=== PATIENT | male | born 1935 | race Caucasian/White ===

== ENCOUNTER 2017-01-20 09:29 | Emergency (ER) | payer MEDICARE, MEDICAID ==
[~2017-01-20] VITALS: Ht 170.2 cm; Wt 68.0 kg
[~2017-01-20 09:29] MED LIST: FLONASE NASAL50 MCG; KEFLEX500 M1 PO; MUCINEX600 MG PO
[2017-01-20] MEDS ORDERED: OCEAN NASAL0.65 % (10:32)
[2017-01-20] MEDS ORDERED: AFRIN 12 HOUR0.05 % (10:32)
[2017-01-20 10:45] VITALS: BP 149/78
[2017-01-21] MEDS ORDERED: AUGMENTIN500TAB PO (00:53)
== END 2017-01-20 10:45 | disposition home or self-care (01) ==
LOC: ED 09:29
DX: J95.830 Postprocedural hemorrhage of a respiratory system organ or structure following a respiratory system procedure (principal); Y83.8 Other surgical procedures as the cause of abnormal reaction of the patient, or of later complication, without mention of misadventure at the time of the procedure

== ENCOUNTER 2017-01-21 00:28 | Inpatient (IN) | payer MEDICARE, MEDICAID ==
[~2017-01-21] VITALS: Ht 170.2 cm; Wt 63.2 kg
[~2017-01-21 00:28] MED LIST changes: +AFRIN 12 HOUR0.05 %; +OCEAN NASAL0.65 %
[2017-01-21] MEDS ORDERED: AUGMENTIN500TAB PO (00:53)
[2017-01-21 01:56] LABS: HEMATOCRIT 41.4 % (39.0-50.0); HEMOGLOBIN 13.9 g/dl (14.0-18.0); IMMATURE GRANULOCYTES 0.4 % (0.0-1.0); MEAN CELL VOLUME 91.6 fL CALC (80.0-100.0); MEAN CORPUSCULAR HGB 30.8 pG CALC (26.0-32.0); MEAN CORPUSCULAR HGB CONC 33.6 g/L CALC (32.0-36.0); NEUT# 6.25 thou/uL (1.82-7.42); RED BLOOD COUNT 4.52 mill/uL (4.70-6.10); RED CELL DISTRI WIDTH 12.6 % (11.5-15.5)
[2017-01-21 02:03] LABS: ALBUMIN 3.5 g/dL (3.2-5.0); ALKALINE PHOSPHATASE 75 u/l (38-126); ANION GAP 15 (6-22 (CALC)); BILIRUBIN, TOTAL 0.5 mg/dL (0.0-1.4); BUN 18 mg/dL (8-23); BUN/CREATININE RATIO 17 (12-20 (CALC)); CALCIUM 9.4 mg/dL (8.4-10.2); CARBON DIOXIDE 23 mmol/l (22-30); CHLORIDE 106 mmol/l (95-108); CREATININE 1.1 mg/dL (0.7-1.3); GFR > 60 ML/MIN (>=60 (CALC)); GFR FOR AFR.AMER. > 60 ML/MIN (>=60 (CALC)); GLUCOSE 141 mg/dL (82-115); POTASSIUM 4.2 mmol/l (3.5-5.1); SGOT/AST 22 u/l (19-48); SGPT/ALT 38 u/l (11-66); SODIUM 140 mmol/l (137-146); TOTAL PROTEIN 6.5 g/dL (6.3-8.2)
[2017-01-21 02:15] LABS: ACT PARTIAL THROMBO TIME 26.2 SECONDS (20.0-32.5); INTERNATIONAL NORMALIZED RATIO 0.9 RATIO (0.7-1.3); PROTHROMBIN TIME 10.2 SECONDS (9.0-12.5)
[2017-01-21 07:59] VITALS: BP 122/67
[2017-01-21 10:15] LABS: HEMATOCRIT 33.3 % (39.0-50.0); MEAN CELL VOLUME 92.8 fL CALC (80.0-100.0); MEAN CORPUSCULAR HGB 30.6 pG CALC (26.0-32.0); RED BLOOD COUNT 3.59 mill/uL (4.70-6.10); RED CELL DISTRI WIDTH 12.7 % (11.5-15.5)
[2017-01-21 14:22] VITALS: BP 118/59
[2017-01-21 15:24] VITALS: BP 103/62
[2017-01-21 16:55] VITALS: BP 102/59; BP 109/61; BP 113/62
[2017-01-21 20:05] VITALS: BP 100/69
[2017-01-22 04:10] VITALS: BP 105/63
[2017-01-22 06:26] LABS: HEMATOCRIT 27.5 % (39.0-50.0); HEMOGLOBIN 9.2 g/dl (14.0-18.0); IMMATURE GRANULOCYTES 0.6 % (0.0-1.0); MEAN CORPUSCULAR HGB 30.8 pG CALC (26.0-32.0); MEAN CORPUSCULAR HGB CONC 33.5 g/L CALC (32.0-36.0); NEUT# 5.1 thou/uL (1.82-7.42); RED BLOOD COUNT 2.99 mill/uL (4.70-6.10); RED CELL DISTRI WIDTH 12.8 % (11.5-15.5)
[2017-01-22 09:51] VITALS: BP 112/67
== END 2017-01-22 10:20 | disposition home or self-care (01) | DRG 908 ==
LOC: ED 00:28 → ED-I 02:53 → ED 03:30 → MS2 03:31
PROVIDERS: Emergency Medicine; Nurse Practitioner Family; ADMIT Internal Medicine; ATTEND Internal Medicine
PROC: 0W3Q7ZZ Control Bleeding in Respiratory Tract, Via Natural or Artificial Opening (ICD-10-PCS; principal; 2017-01-21)
DX: J95.830 Postprocedural hemorrhage of a respiratory system organ or structure following a respiratory system procedure (principal); D62 Acute posthemorrhagic anemia; I95.89 Other hypotension; Y83.8 Other surgical procedures as the cause of abnormal reaction of the patient, or of later complication, without mention of misadventure at the time of the procedure

== ENCOUNTER 2017-07-02 06:50 | Day surgery (SDC) | payer MEDICARE, MEDICAID ==
[~2017-07-02] VITALS: Ht 170.2 cm; Wt 64.4 kg
[~2017-07-02 06:50] MED LIST changes: +AUGMENTIN500TAB PO; +MILLIPRED5 M1 PO; +MULTIVITAMI1 PO
[2017-07-02] MEDS ORDERED: NORCO1 TA1 PO (09:47)
[2017-07-02 10:19] VITALS: BP 127/68
== END 2017-07-02 10:45 | disposition home or self-care (01) ==
LOC: ORM 06:50
PROVIDERS: ATTEND Surgery
PROC: 0YU50JZ Supplement Right Inguinal Region with Synthetic Substitute, Open Approach (ICD-10-PCS; principal; 2017-07-02)
DX: K40.91 Unilateral inguinal hernia, without obstruction or gangrene, recurrent (principal)
CPT/HCPCS: C9290

== ENCOUNTER 2020-10-26 11:38 | Emergency (ER) | payer MEDICARE, MEDICAID ==
[~2020-10-26 11:38] MED LIST changes: +NORCO1 TA1 PO
[2020-10-26 12:19] LABS: URINE BILIRUBIN - DIPSTICK NEGATIVE (NEGATIVE); URINE BLOOD DIPSTICK LARGE (NEGATIVE); URINE COLOR YELLOW; URINE GLUCOSE - DIPSTICK NEGATIVE (NEGATIVE); URINE KETONE 15 mg/dL (NEGATIVE); URINE LEUK ESTERASE NEGATIVE (NEGATIVE); URINE PH 5.5 (4.5-8.0); URINE PROTEIN - DIPSTICK NEGATIVE (NEG-TRACE); URINE SPECIFIC GRAVITY 1.025; URINE UROBILINOGEN - DIPSTICK 0.2 E.U./dL (0.2)
[2020-10-26 12:22] LABS: URINE NITRITE - DIPSTICK NEGATIVE (Negative)
[2020-10-26 12:31] LABS: HEMATOCRIT 49.8 % (39.0-50.0); HEMOGLOBIN 16.2 g/dl (14.0-18.0); IMMATURE GRANULOCYTES 0.3 % (0.0-5.0); MEAN CELL VOLUME 92.7 fL CALC (80.0-100.0); MEAN CORPUSCULAR HGB 30.2 pG CALC (26.0-32.0); MEAN CORPUSCULAR HGB CONC 32.5 g/dL CAL (32.0-36.0); NEUT# 10.29 thou/uL (1.82-7.42); RED BLOOD COUNT 5.37 mill/uL (4.70-6.10); RED CELL DISTRI WIDTH 13.2 % (11.5-15.5)
[2020-10-26 12:43] LABS: ALBUMIN 4.4 g/dL (3.2-5.0); BILIRUBIN, TOTAL 0.9 mg/dL (0.0-1.4); CREATININE 1.4 mg/dL (0.7-1.3); POTASSIUM 3.8 mmol/l (3.5-5.1); TOTAL PROTEIN 7.9 g/dL (6.3-8.2)
[2020-10-26] MEDS ORDERED: TAMSULOSIN0.4 MG PO (14:18)
[2020-10-26] MEDS ORDERED: CEPHALEXIN500 M1 PO (14:18)
[2020-10-26 14:25] VITALS: BP 153/74
== END 2020-10-26 14:38 | disposition home or self-care (01) ==
LOC: ED 11:38
PROVIDERS: Family Medicine
DX: N20.1 Calculus of ureter (principal); I10 Essential (primary) hypertension
CPT/HCPCS: Q9967